=== PATIENT | male | born 1960 | race Caucasian/White ===

== ENCOUNTER → 2017-10-22 09:09 | Outpatient (CLI) | payer BC, SELFPAY ==
[2017-10-22 12:09] LABS: PSA,Total - Annual Screen 0.39 ng/mL (0.00-4.00)
[2017-10-27 12:08] LABS: Testosterone, Free 7.74 ng/dL (5.00-21.00)
[2017-10-27 14:17] LABS: Testosterone, % Free 2.23 % (1.50-4.20); Testosterone, Total 347 ng/dL (264-916)
== END ==
PROVIDERS: Family Provider Family Medicine; PCP Family Medicine; Visit Provider Family Medicine
DX: N52.9 Male erectile dysfunction, unspecified (principal); Z12.5 Encounter for screening for malignant neoplasm of prostate
CPT/HCPCS: 36415; 84153; 84402; 84403; G0103

== ENCOUNTER → 2018-03-08 08:02 | Outpatient (CLI) | payer OTHER, SELFPAY ==
--- NOTE | 2018-03-08 08:07 | US_ITS ---
PROCEDURES: ULTRASOUND AORTA REASON FOR EXAM: Male, 57 years old. Abdominal bruit. TECHNIQUE: Ultrasound evaluation of the aorta was performed with real-time and static springer-scale imaging. COMPARISON: None. FINDINGS: The aorta is somewhat tortuous and elongated. Atherosclerotic calcifications present in the wall of the aorta and proximal iliac vessels. Arterial flow is multiphasic and normal in the aorta and right common iliac artery. Aorta measures: Proximal 17 x 19 mm Mid 21 x 24 mm Distal 17 x 22 mm Right iliac artery measures: 8 x 7 mm Left iliac artery measures: 8 x 7 mm. Increased velocities up to 234 cm/s. US/Aorta IMPRESSION: No evidence of aneurysm. Increased velocity within a calcified atherosclerotic left common iliac artery up to 234 cm/s suggesting the presence of mild to moderate stenosis. Electronically Signed: Remington Andrews, at 16:09 EDT Tel , Service support ,
== END ==
LOC: US 08:03
PROVIDERS: Family Provider Family Medicine; PCP Family Medicine; Referring Provider Family Medicine; Visit Provider Family Medicine
DX: R09.89 Other specified symptoms and signs involving the circulatory and respiratory systems (principal)
CPT/HCPCS: 76775

== ENCOUNTER → 2018-10-19 06:11 | Outpatient (CLI) | payer OTHER, SELFPAY ==
[2018-10-04 10:24] VITALS: BMI 24.8
--- NOTE | 2018-10-19 16:55 | STRESSREP ---
Stress Test Report Date: 10-19-18 Procedure: Exercise tolerance test/imaging study Indications: Cardiac ectopy; PACs; PVCs, peripheral arterial occlusive disease Consent: Per the patient Procedure: The patient exercised on a Brett protocol for 6 minutes completing stage II achieving a peak heart rate of 137 bpm (84 % predicted maximal heart rate) with a peak blood pressure 170/82 mmHg and a peak MET capacity of 7 METs. The baseline ECG demonstrated sinus bradycardia; nonspecific T wave abnormality. The peak exercise ECG demonstrated somatic/motion artifact with pseudonormalization of the baseline nonspecific T wave changes with gradual resolution towards baseline in recovery. There were rare PACs during exercise and rare PVCs during recovery. The functional capacity was considered decreased. There was chest tightness during recovery with spontaneous resolution and recovery. The examination was discontinued secondary to leg discomfort. Impression: 1. Technically adequate (percent predicted maximal heart rate greater than 85%) exercise tolerance test 2. Peak exercise ECG menstruated somatic/motion artifact with pseudonormalization of the baseline nonspecific T wave changes with gradual resolution towards baseline in recovery 3. There were rare PACs during exercise and rare PVCs during recovery 4. Nuclear images pending Myocardial perfusion imaging study: Technique: The patient was injected with 11.9 mCi of technetium 99m Cardiolite and subsequently rest SPECT Cardiolite nuclear imaging was obtained in the horizontal long, vertical long, and short axis views. The patient exercised on a Brett protocol for 6 minutes completing stage II achieving a peak heart rate of 137 bpm (84 % predicted maximal heart rate) with a peak blood pressure 170/82 mmHg and a peak MET capacity of 7 METs. The patient was injected with 33.4 mCi of technetium 99m Cardiolite and subsequently stress SPECT Cardiolite nuclear imaging was obtained in the horizontal long, vertical long, and short axis views. A gated Cardiolite study at peak stress was obtained. Interpretation: Rest and stress SPECT Cardiolite nuclear imaging status post realignment, normalization, and attenuation correction, demonstrates extracardiac/gastrointestinal tracer uptake near the inferior segments at rest which appears to be less prominent and/or absent following stress. At rest there is notation of subtle diminished tracer uptake in portions of the distal anterior/anterior apical segments which appears to improve/normalize following stress. Following stress there appears to be relative uniform tracer uptake and myocardial perfusion appearing within normal limits. There is end systolic thickening and brightening. The gated Cardiolite study demonstrates myocardial thickening and inward wall motion. The reported LVEF is 66 %. Impression: 1. Rest and stress SPECT Cardiolite nuclear imaging demonstrate myocardial perfusion changes appearing compatible shifting soft tissue attenuation/artifact being more prominent at rest as opposed to stress with no post stress myocardial perfusion changes consider diagnostic for associated stress-induced myocardial ischemia or previous myocardial injury/infarction. 2. The gated Cardiolite study reports an LVEF of 66 %. This note was generated with WriteReader Ap[employer]ation software. It may contain incorrect words, spelling, and punctuation that were not noted in checking the note before signing.
== END ==
LOC: CVS 06:13
PROVIDERS: Family Provider Family Medicine; PCP Family Medicine; Referring Provider Internal Medicine Cardiovascular Disease; Visit Provider Internal Medicine Cardiovascular Disease
DX: R07.89 Other chest pain (principal); I49.1 Atrial premature depolarization; I49.3 Ventricular premature depolarization; I73.9 Peripheral vascular disease, unspecified; R00.1 Bradycardia, unspecified
CPT/HCPCS: 78452; 93017; A9500; A4216

== ENCOUNTER → 2018-10-29 07:54 | Outpatient (CLI) | payer OTHER, SELFPAY ==
[2018-10-04 10:24] VITALS: BMI 24.8
--- NOTE | 2018-10-29 08:15 | RAD_ITS ---
STUDY: X-RAY CHEST REASON FOR EXAM: Male, 58 years old. Abnormal stress test. TECHNIQUE: PA and lateral views of the chest. COMPARISON: None. FINDINGS: The lungs are clear and expanded. There is no demonstrated pleural abnormality. Normal size heart. Normal mediastinum and jina. Normal visualized pulmonary arteries. Normal visualized aortic arch and descending thoracic aorta. There are diffuse degenerative changes of the visualized thoracic spine. Normal visualized ribs, clavicles, and shoulders. There is no demonstrated abnormality of the visualized soft tissue structures of the upper abdomen. RAD/Chest PA and Lateral IMPRESSION: No acute abnormality is seen. Electronically Signed: Art Evans, at 13:43 EDT , Service support ,
[2018-10-29 08:20] LABS: Hematocrit 46.3 % (40-54); Hemoglobin 15.7 g/dl (13.0-16.5); Mean Corp Hgb Conc 33.9 g/gl (32-36); Mean Corpuscular Hgb 31.1 pg (27.0-32.0); Mean Corpuscular Volume 91.7 fL (80-94); Mean Platelet Vol. 10.2 fl (6.2-12.0); Platelet Count 257 K/mm3 (150-450); RBC Distribution Width CV 13.3 % (11.6-14.6); RBC Distribution Width SD 44.1 fl (35.1-43.9); Red Blood Count 5.05 M/mm3 (4.6-6.2)
[2018-10-29 08:28] LABS: Scan Indicated on CBC? Y/N NO
[2018-10-29 08:32] LABS: International Normalized Ratio 1.1; Prothrombin Time (Protime)PT. 13.8 SECONDS (11.7-14.9)
[2018-10-29 08:33] LABS: Partial Thromboplast Time 35.5 Seconds (24.1-36.2)
[2018-10-29 08:45] LABS: Anion Gap 4 (5-15); BUN 14 mg/dL (7-18); BUN/Creat Ratio 11.4 RATIO (10-20); Calcium,Total 8.8 mg/dL (8.5-10.1); Chloride 105 mmol/L (98-107); Creatinine, Serum 1.23 mg/dL (0.70-1.30); EST Glomerular Filtration Rate 64 mL/min (>60); Est Glom Filt Rate - Afr Amer 78 mL/min (>60); Glucose 115 mg/dL (74-106); Potassium 4.5 mmol/L (3.5-5.1); Sodium Level 138 mmol/L (136-145); T4 Total, Thyroxin 8.4 ug/dL (4.5-12.1)
== END ==
LOC: LAB 07:56
PROVIDERS: Family Provider Family Medicine; PCP Family Medicine; Referring Provider Internal Medicine Cardiovascular Disease; Visit Provider Internal Medicine Cardiovascular Disease
DX: R07.9 Chest pain, unspecified (principal); R00.2 Palpitations; R94.39 Abnormal result of other cardiovascular function study
CPT/HCPCS: 36415; 71046; 80048; 84436; 85027; 85610; 85730

== ENCOUNTER 2018-11-02 08:15 | Day surgery (SDC) | payer OTHER, SELFPAY ==
[2018-10-04 10:24] VITALS: BMI 24.8
[2018-10-29 09:43] VITALS: BMI 24.8
[2018-11-02] VITALS (25 sets, daily range): BP systolic 100–182; BP diastolic 59–102; PULSE 56–72; RESP 13–21; TEMP 36.8–36.9; O2SAT 95–998; BMI 24.6
--- NOTE | 2018-11-02 10:44 | ECHOD_ITS ---
Reason For Study: CAD/ASHD Procedure This was a 2D Doppler, Color Flow transthoracic echocardiogram. Echo done with patient supine due to recent cath. The study was technically difficult. Exam performed portable in ICU/CCU. Left Ventricle Normal LV size. Left ventricular systolic function is normal. The estimated ejection fraction is 60 %. Transmitral doppler flow suggestive of impaired relaxation of left ventricle. No regional wall motion abnormalities noted. Right Ventricle Normal RV size. Normal systolic function. Atria Normal left atrium. Normal right atrium. No doppler evidence for ASD. Mitral Valve There is no mitral annular calcification. Normal mitral valve. Trivial mitral valve insufficiency. Tricuspid Valve Normal tricuspid valve. Trivial tricuspid valve insufficiency. Unable to estimate RV systolic pressure/pulmonary artery pressure due to technically difficult study. Aortic Valve Trisinus/trileaflet aortic valve. Mild focal aortic valve calcification. Pulmonic Valve The pulmonic valve is not well visualized. Trivial pulmonic valve insufficiency. Great Vessels Normal sized aortic root. Pericardium/Pleural No pericardial effusion. MMode/2D Measurements & Calculations LVIDd: 4.4 cm IVSd: 0.89 cm Ao root diam: 3.5 cm LVIDs: 2.8 cm LVPWd: 0.89 cm LA dimension: 3.6 cm FS: 36.3 % LAV(MOD-bp): 39.4 ml LA A4 area: 13.6 cm2 RA A4 area: 10.9 cm2 LAV(MOD-bp) Indexed: 19.6 ml/m2 LAV(MOD-sp2): 38.5 ml LAV(MOD-sp4): 32.3 ml Time Measurements MV dec time: 0.28 sec Doppler Measurements & Calculations MV E max jose raul: 66.6 cm/sec Lat Peak E' Jose Raul: 12.3 cm/sec Med Peak E' Jose Raul: 10.1 cm/sec MV A max jose raul: 96.2 cm/sec E/E' lat: 5.4 E/E' med: 6.6 MV E/A: 0.69 MV V2 max: 98.2 cm/sec MV P1/2t max jose raul: 82.8 cm/sec Ao V2 max: 128.1 cm/sec MV max P.9 mmHg MV P1/2t: 92.7 msec Ao max P.6 mmHg MV V2 mean: 49.8 cm/sec MV dec slope: 261.8 cm/sec2 MV mean P.2 mmHg MVA(P1/2t): 2.4 cm2 MV V2 VTI: 28.0 cm LV V1 max: 98.0 cm/sec PA V2 max: 109.8 cm/sec LV V1 max P.8 mmHg Interpretation Summary The study was technically difficult. Left ventricular systolic function is normal. The estimated ejection fraction is 60 %. Trivial mitral valve insufficiency. Trivial tricuspid valve insufficiency. Mild focal aortic valve calcification. Trivial pulmonic valve insufficiency. Unable to estimate RV systolic pressure/pulmonary artery pressure due to technically difficult study. Transmitral doppler flow suggestive of impaired relaxation of left ventricle Ordering Physician: Rocky Cee Referring Physician: Rocky Cee Performed By: Sahil Ahn RCS
--- NOTE | 2018-11-02 11:30 | EKG12_ITS ---
Test Reason : POST PCI Blood Pressure : / mmHG Vent. Rate : 055 BPM Atrial Rate : 055 BPM P-R Int : 156 ms QRS Dur : 084 ms QT Int : 450 ms P-R-T Axes : 037 -01 004 degrees QTc Int : 430 ms Sinus bradycardia Otherwise normal ECG No previous ECGs available Confirmed by ORQUIDEA JOHNSTON, DIMITRI ([id number]), food editor YELENA JACINTO ([id number]) on 11/08/2018 2:48:20 PM Referred By: Rocky Cee Confirmed By:DIMITRI HEARD MD
--- NOTE | 2018-11-02 11:44 | CL.D_ITS ---
Patient Name: ISABELLE RESENDEZ Study Date: 11/02/2018 Performing: Rocky Cee MD Ht: 71 inches 180 cm : 1960 Wt: 178.8 lbs 81 kg Age: 58 Gender: male BSA: 2.01 PROCEDURE(S) PERFORMED [id number] W OR WO PTCA, SINGLE CORONARY ARTERY [id number], EACH ADD'L CORONARY ART, SAME MAJOR CLINICAL PROFILE AND INDICATIONS Indications: Suspected CAD Heart Failure: None Stress/Imaging Date: 10/19/2018 Angina Classification Anginal Classification w/in 2 Weeks: CCS II CAD Presentations: Other: Palpitations CONCLUSIONS [place] Multivessel CAD (especially LCX - Distal) RECOMMENDATIONS Risk factor modification Medical therapy Referred for immediate PCI DESCRIPTION OF PROCEDURE The patient arrived to the procedure lab. The risks and benefits of the procedure as well as a full d escription of our services here and current unavailability of surgical backup were fully explained to the patient and/or their significant other prior to the catheterization. The Timeout was completed, verifying the correct patient and procedure. The patient's procedural site was prepped and draped in the usual fashion. Local anesthetic was given subcutaneously to right radial region with Lidocaine 2% . Using a modified Seldinger technique, arterial access was obtained via the right radial artery, a 6 Fr sheath was inserted. Right Coronary Artery selective angiography was then performed in multiple v iews using a 5 Fr. 4.0 Riesel catheter. Left Coronary Artery selective angiography was performed in mu ltiple views using a 5 Fr. 4.0 Riesel catheter.The arterial sheath was pulled and a TR Band was applie d for hemostasis 12 cc's of air in band CORONARY ANGIOGRAPHY DOMINANCE: Right Dominant LEFT HEART ASSESSMENT Left Ventricular Ejection Fraction: Not assessed LEFT MAIN: Angiographically normal LEFT ANTERIOR DESCENDING ARTERY: Mild luminal irregularities PROX LAD: diffuse: 25 % Stenosis MID LAD: 10 - 25 % Stenosis CIRCUMFLEX ARTERY: Mild luminal irregularities MID CIRC: diffuse: 25 % Stenosis DISTAL CIRC: 85 % Stenosis RIGHT CORONARY ARTERY: Mild luminal irregularities MID RCA: eccentric: 25 % Stenosis COMPLICATIONS No Complications PROCEDURE MEDICATIONS Fentanyl 50 mcg IV Versed 1 mg IV Versed 1 mg IV Fentanyl 50 mcg IV Fentanyl 50 mcg IV Oxygen: 2 L/min via nasal cannula Heparin given IA 11/02/2018 09:59:10 Heparin 6000 unit(s) IV 11/02/2018 10:30:37 Verapamil 2.5mg, Ntg 100mcgs, 2000 units of Heparin given IA 11/02/2018 09:59:10 SUMMARY OF HEMODYNAMIC DATA Time AIR REST ECG 08:39:07 AO 114/66 (85) SA 10:01:41 LV 153/5, 17 10:35:50 LV 141/3, 15 10:35:57 LVp 147/7, 25 10:36:06 AOp 140/12 (55) 10:36:11 Signed By Rocky Cee MD On 11/02/2018 11:43:15 Rocky Cee MD
[2018-11-02] MEDS: hydrALAZINE 20 MG/ML Vial 5 MG IV (13:07)
--- NOTE | 2018-11-02 13:10 | CRPHASE1 ---
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 Refer Phase II Cardiac Rehab:: Yes Sessions:: 36 sessions - 3 days/wk, 12 weeks Risk Factors/Lifestyle Smoking Status: Current every day smoker Hx Hypertension: No Hx Diabetes Mellitus Type 1: No Hx Diabetes Mellitus Type 2: No Hx Metabolic Disorders: No Hx Dyslipidemia: Yes Hx Obesity: No Height: 5 ft 11 in - BMI 24.8 Stress: Home/Family Risk Factor for Sedentary Lifestyle: Moderate Risk Family History: Family History (Last Reviewed 10/04/18 @ 10:26 by Adeline Gutierrez) Father Hypertension Myocardial infarction CAD (coronary artery disease) Brother CAD (coronary artery disease) Issues Affecting Care:: None Knowledge of Condition:: Yes Learning Preferences: Verbal, Written Medical/Surgical History MT:: No CAD:: No Cardiomyopathy:: No Asthma:: Yes Diabetes:: No Hypertension:: No Dyslipidemia:: Yes Arrhythmias:: Yes - PALPITATIONS GERD:: Yes Discharge/Home/Social Eval Discharge Disposition: Home Cardiac Rehabilitation Info Cardiac Rehabilitation Program Information: Cardiac Rehabilitation is important for patients like you who are recovering from a heart problem. Cardiac rehabilitation programs are recognized as integral to the continued care of the patient with coronary heart disease. The cardiac rehabilitation program is designed to optimize a patient's physical, psychological, and social functioning. Health career development coordinator work in cardiac rehabilitation programs and assist you with getting the treatments you need to get stronger and healthier - like exercise, healthy eating habits, and medications. Cardiac rehabilitation has been show to help people with heart problems live longer and have better life enjoyment than people who do not go to cardiac rehabilitation. Please contact the Cardiac Rehabilitation Program at [facility] at in two weeks if you have not heard from them.
--- NOTE | 2018-11-02 13:14 | CRPHASE1_ITS ---
Patient Communication PHII Cardiac Rehab Discussed with Patient:: Yes Guide to Cardiac Rehab Given to Patient:: Yes Cardiac Rehab Facility Choice List Given to Patient:: Yes - PT TO CHOOSE CR [facility]AR [facility] Program Other:: Communication Given to CR, With permission faxed order and referral information Medical Services Assistant:: Fransisco Alonso - . Refer Phase II Cardiac Rehab:: Yes Sessions:: 36 sessions - 3 days/wk, 12 weeks Risk Factors/Lifestyle Smoking Status: Current every day smoker Hx Hypertension: No Hx Diabetes Mellitus Type 1: No Hx Diabetes Mellitus Type 2: No Hx Metabolic Disorders: No Hx Dyslipidemia: Yes Hx Obesity: No Height: 5 ft 11 in - BMI 24.8 Stress: Home/Family Risk Factor for Sedentary Lifestyle: Moderate Risk Family History: Family History (Last Reviewed 10/04/18 @ 10:26 by Adeline Gutierrez) Father Hypertension Myocardial infarction CAD (coronary artery disease) Brother CAD (coronary artery disease) Issues Affecting Care:: None Knowledge of Condition:: Yes Learning Preferences: Verbal, Written Medical/Surgical History IN:: No CAD:: No Cardiomyopathy:: No Asthma:: Yes Diabetes:: No Hypertension:: No Dyslipidemia:: Yes Arrhythmias:: Yes - PALPITATIONS GERD:: Yes Discharge/Home/Social Eval Discharge Disposition: Home Cardiac Rehabilitation Info Cardiac Rehabilitation Program Information: Cardiac Rehabilitation is important for patients like you who are recovering from a heart problem. Cardiac rehabilitation programs are recognized as integral to the continued care of the patient with coronary heart disease. The cardiac rehabilitation program is designed to optimize a patient's physical, psychological, and social functioning. Health customer care assistant work in cardiac rehabilitation programs and assist you with getting the treatments you need to get stronger and healthier - like exercise, healthy eating habits, and medications. Cardiac rehabilitation has been show to help people with heart problems live longer and have better life enjoyment than people who do not go to cardiac rehabilitation. Please contact the Cardiac Rehabilitation Program at [facility] at in two weeks if you have not heard from them.
--- NOTE | 2018-11-02 13:16 | CRPH1.INST_ITS ---
General Education CAD and cardiac anatomy and function:: Patient communicates acknowledgment, Family communicates acknowledgment Explanation of diagnoses and procedures:: Patient communicates acknowledgment, Family communicates acknowledgment Sign/Symptoms of TX:: Patient communicates acknowledgment, Family communicates acknowledgment Antiplatelet therapy: Patient communicates acknowledgment, Family communicates acknowledgment Proper use of NTG-SL: Not instructed Emergency procedures and activation of EMS: Patient communicates acknowledgment, Family communicates acknowledgment Compliance of all prescribed medications: Patient communicates acknowledgment, Family communicates acknowledgment - FAMILY AT BEDSIDE Smoking Patient Nicotine/Smoking Risk Factors Are:: Cigarettes Recommendations Include:: Smoking cessation strategies/Smoking packet, Second- hand smoke recommendation, Participation in a smoking cessation program Nicotine/Smoking Response Code:: Patient communicates acknowledgment, Family communicates acknowledgment Dyslipidemia Patient Dyslipidemia Risk Factors Are:: Total Cholesterol, Triglycerides, HDL, LDL Recommendations Include:: Lipid profile provided, Reviewed NCEP/ATP guidelines, Therapeutic Lifestyle Change dietary guidelines Dyslipidemia Response Code:: Patient communicates acknowledgment, Family communicates acknowledgment Overweight/Obesity Patient Overweight/Obesity Risk Factors Are:: BMI Normal [18-25 & < 65 years old] Hypertension Patient Hypertension Risk Factors Are:: No documented hx of HTN Heart Disease Heart Disease Response Code:: Patient communicates acknowledgment, Family communicates acknowledgment Diabetes Patient Diabetes Risk Factors Are:: No documented hx of diabetes Metabolic Syndrome Recommendations Include:: Does not meet criteria Sedentary Patient Sedentary Risk Factors Are:: Lack of regular exercise Recommendations Include:: Aerobic exercise 5-7 times/week for 20-30 minutes continuously, Benefits of regular exercise, Discussed home walking program, Monitored Outpatient Cardiac Rehab Sedentary Response Code:: Patient communicates acknowledgment, Family c ommunicates acknowledgment Stress Recommendations Include:: Identification of stressors, and assessment of coping skills, Stress management techniques Stress Response Code:: Patient communicates acknowledgment, Family communicates acknowledgment
--- NOTE | 2018-11-02 16:14 | CL.I_ITS ---
Patient Name: ISABELLE RESENDEZ Study Date: 11/02/2018 Performing: Ritchie Alonso MD Ht: 71 inches 180 cm : 1960 Wt: 178.8 lbs 81 kg Age: 58 Gender: male BSA: 2.01 PROCEDURE(S) PERFORMED [id number] W OR WO PTCA, SINGLE CORONARY ARTERY [id number], EACH ADD'L CORONARY ART, SAME MAJOR CLINICAL PROFILE AND CO-MORBIDITIES Indications: Suspected CAD Heart Failure: None Stress/Imaging Date: 10/19/2018 Angina Classification Anginal Classification w/in 2 Weeks: CCS II CAD Presentations: Other: Palpitations CONCLUSIONS Successful PCI of dLCx/OM1 bifurcation with AMANDA to dLCX and PTCA alone of OM1 RECOMMENDATIONS Follow up with primary 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 The risks and benefits of the procedure as well as a full d escription of our services here and current unavailability of surgical backup were fully explained to the patient and/or their significant other prior to the catheterization. The Timeout was completed, verifying the correct patient and procedure. The patient's procedural site was prepped and draped in the usual fashion. Local anesthetic was given subcutaneously to right radial region with Lidocaine 2% Using a modified Seldinger technique,arterial access was obtained via the right radial artery, a 6Fr sheath was inserted. Right Coronary Artery selective angiography was then performed in multiple view s using a 5 Fr. 4.0 [place] catheter. Left Coronary Artery selective angiography was performed in multi ple views using a 5 Fr. 4.0 [place] catheter.The images were reviewed and options discussed. A decision was then made to proceed with an Intervention, IVUS or other adjunct procedure. xb 3 guide Guide catheter was inserted and engaged into the LCA. bmw Guide wire was advanced to t he Circumflex. synergy 2.25 x 8 Drug Eluting stent was advanced across the lesion in the circumflex, distal. Angiogram performed post stent deployment. emerge 1.5 x 8 Balloon catheter was advanced acros s lesion in the first obtuse marginal, ostial. PTCA balloon inflated at 12 atms for 16 secs. emerge 2 .5 x 12 Balloon catheter was advanced across lesion in the first obtuse marginal, ostial. Angiogram p erformed pre balloon dilatation. PTCA balloon inflated at 6 atms for 11 secs. PTCA balloon inflated a t 6 atms for 7 secs. Angiogram performed post balloon dilatation. The arterial sheath was pulled an d a TR Band was applied for hemostasis 12 cc's of air in band INTERVENTION INFORMATION LESION SITE: Circumflex (Distal) Lesion Complexity: High/C, chronic total occlusion: No, lesion at bifurcation: Yes, thrombus present: No, lesion length: 5 mm, culprit lesion: Yes, Previously treated lesion: No Pre Stenosis: 90 % Pre intervention TAZ flow: 3 PROCEDURE: Drug Eluting Stent Post Stenosis: 0 % Post intervention TAZ flow: 3 Lesion Devices: FDTEK Synergy MR AMANDA 2.25x08 LESION SITE: 1st OM (Ostial) Lesion Complexity: High/C, chronic total occlusion: No, lesion at bifurcation: Yes, thrombus present: No, lesion length: 5 mm, In-stent restenosis: No, Previously treated lesion: No Pre Stenosis: 95 % Pre intervention TAZ flow: 3 PROCEDURE: Balloon Angioplasty Post Stenosis: 60 % Post intervention TAZ flow: 3 Lesion Devices: Tor Sci EMERGE MR 1.50x08 BALLOON Tor Sci EMERGE MR 2.50x12 BALLOON COMPLICATIONS No Complications PROCEDURE MEDICATIONS Fentanyl 50 mcg IV Versed 1 mg IV Versed 1 mg IV Fentanyl 50 mcg IV Fentanyl 50 mcg IV Oxygen: 2 L/min via nasal cannula Heparin given IA 11/02/2018 09:59:10 Heparin 6000 unit(s) IV 11/02/2018 10:30:37 Verapamil 2.5mg, Ntg 100mcgs, 2000 units of Heparin given IA 11/02/2018 09:59:10 SUMMARY OF HEMODYNAMIC DATA Time AIR REST ECG 08:39:07 AO 114/66 (85) SA 10:01:41 LV 153/5, 17 10:35:50 LV 141/3, 15 10:35:57 LVp 147/7, 25 10:36:06 AOp 140/12 (55) 10:36:11 Signed By Ritchie Alonso MD On 11/02/2018 16:13:47 Ritchie Alonso MD
[2018-11-02] MEDS: Metoprolol(XL)Succ 25 MG Tablet PO (19:41)
[2018-11-02] MEDS: Pantoprazole Sodium 20 MG Tablet PO (19:41)
[2018-11-03] VITALS (12 sets, daily range): BP systolic 108–147; BP diastolic 42–91; PULSE 55–73; RESP 15–23; TEMP 36.1–36.9; O2SAT 96–98
[2018-11-03 08:06] LABS: Hematocrit 45.1 % (40-54); Hemoglobin 15.1 g/dl (13.0-16.5)
[2018-11-03 08:20] LABS: Anion Gap 7 (5-15); BUN 14 mg/dL (7-18); BUN/Creat Ratio 13.2 RATIO (10-20); Calcium,Total 8.5 mg/dL (8.5-10.1); Chloride 109 mmol/L (98-107); Creatinine, Serum 1.06 mg/dL (0.70-1.30); EST Glomerular Filtration Rate 77 mL/min (>60); Est Glom Filt Rate - Afr Amer 93 mL/min (>60); Estimated Creatinine Clearance 81.89 ml/min; Glucose 101 mg/dL (74-106); Potassium 4.3 mmol/L (3.5-5.1); Sodium Level 142 mmol/L (136-145)
[2018-11-03] MEDS: Metoprolol(XL)Succ 25 MG Tablet PO (08:47)
[2018-11-03] MEDS: Pantoprazole Sodium 20 MG Tablet PO (08:47)
[2018-11-03] MEDS: Aspirin E.C. 81 MG Tablet PO (08:47)
[2018-11-03] MEDS: Clopidogrel Bisulfate 75 MG Tablet PO (08:47)
--- NOTE | 2018-11-03 08:57 | PCM.DC.CCA ---
Discharge Diet: Low fat/ Low Cholesterol Return to work on:: 11/08/18 Lifting Restrictions: 10 pounds and also avoid any pushing or pulling for 3 days after your test. Call your doctor if your incision/area has: Continuous Slow Oozing, Sudden Increased Bleeding, Increased Pain/ Swelling, Increased Redness, Foul Smelling Discharge, Swelling at the incision site Call your doctor if you observe: Fever of 101 or Higher, Shortness of breath, Chest pain Remove Dressing in (days):: 1 Additional Dressing/Incision Instructions:: Keep the dressing (bandage) on until the next morning. You may then shower, but do not take a tub bath for 5 days after your test. It is normal to have some tenderness and discomfort at the puncture site. Sometimes bruising also occurs. However, if pain, numbness, or coldness occurs below the puncture site (in your leg, toes, arms or fingers) call your doctor at once. You may have a small, marble sized knot at the puncture site. This is normal. Do not rub it. It will go away in 4-6 weeks. Bleeding can occur from the area where the puncture was done. Blood may spurt or drip from the site. If blood spurts, apply pressure right away to stop bleeding and call 911. Although rare, bleeding into the tissue (hematoma) can also occur. If this happens, a large, firm area goose egg under the skin will appear. If any of these occur, lie down as flat as you can and have someone apply firm pressure to the cath site with a gauze pad or a clean washcloth for 10-15 minutes. Call 911 or go to the Emergency Department. Additional Instructions: You will need to stay on your plavix for at least one year prior to holding it for any reason You were started on a cholesterol lowering medication, You will need to have your labs checked in 6 weeks after starting this medication At your next OV we will discuss cardiac rehab. Allergies/Adverse Reactions: Allergies No Known Allergies Allergy (Unverified 10/04/18 10:24) Medications to take at Discharge acetaminophen 500 mg tablet 500 mg PO DAILY tab 06/11/17 esomeprazole magnesium 20 mg tablet,delayed release 20 mg PO QDAY 06/11/17 aspirin 81 mg tablet,delayed release 81 mg PO DAILY 10/04/18 metoprolol succinate ER 25 mg tablet,extended release 24 hr 25 mg PO BID #180 tab 10/04/18 RX: Aspirin E.C. [Ecotrin] 81 mg PO DAILYCM #30 tablet 11/03/18 RX: Atorvastatin Calcium [Lipitor] 40 mg PO QHS #30 tablet 11/03/18 RX: Clopidogrel Bisulfate [Clopidogrel] 75 mg PO DAILY #30 tab 11/03/18 The following prescriptions were given: RX: Aspirin E.C. [Ecotrin] 81 mg PO DAILYCM #30 tablet RX: Atorvastatin Calcium [Lipitor] 40 mg PO QHS #30 tablet RX: Clopidogrel Bisulfate [Clopidogrel] 75 mg PO DAILY #30 tab Orders to be completed after discharge: Phase II, Outpatient Cardiac Rehab Location: None Selected Primary Care Physician: Haroldo Meeks DO [Primary Care Provider] - Please follow up with your Primary Care Physician in: 2-4 weeks Test Results: Test results from this visit will be discussed in further detail at your follow-up appointment, if applicable. Please Follow Up With: Nirmal Hays NP-C When: 11/22 at 1130 Cardiac Rehabilitation Info Cardiac Rehabilitation Program Information: Cardiac Rehabilitation is important for patients like you who are recovering from a heart problem. Cardiac rehabilitation programs are recognized as integral to the continued care of the patient with coronary heart disease. The cardiac rehabilitation program is designed to optimize a patient's physical, psychological, and social functioning. Health intensive care ambulance paramedic work in cardiac rehabilitation programs and assist you with getting the treatments you need to get stronger and healthier - like exercise, healthy eating habits, and medications. Cardiac rehabilitation has been show to help people with heart problems live longer and have better life enjoyment than people who do not go to cardiac rehabilitation. Please contact the Cardiac Rehabilitation Program at [facility] at in two weeks if you have not heard from them.
--- NOTE | 2018-11-03 09:02 | DCINST_ITS ---
Discharge Diet: Low fat/ Low Cholesterol Return to work on:: 11/08/18 Lifting Restrictions: 10 pounds and also avoid any pushing or pulling for 3 days after your test. Call your doctor if your incision/area has: Continuous Slow Oozing, Sudden Increased Bleeding, Increased Pain/ Swelling, Increased Redness, Foul Smelling Discharge, Swelling at the incision site Call your doctor if you observe: Fever of 101 or Higher, Shortness of breath, Chest pain Remove Dressing in (days):: 1 Additional Dressing/Incision Instructions:: Keep the dressing (bandage) on until the next morning. You may then shower, but do not take a tub bath for 5 days after your test. It is normal to have some tenderness and discomfort at the puncture site. Sometimes bruising also occurs. However, if pain, numbness, or coldness occurs below the puncture site (in your leg, toes, arms or fingers) call your doctor at once. You may have a small, marble sized knot at the puncture site. This is normal. Do not rub it. It will go away in 4-6 weeks. Bleeding can occur from the area where the puncture was done. Blood may spurt or drip from the site. If blood spurts, apply pressure right away to stop bleeding and call 911. Although rare, bleeding into the tissue (hematoma) can also occur. If this happens, a large, firm area goose egg under the skin will appear. If any of these occur, lie down as flat as you can and have someone apply firm pressure to the cath site with a gauze pad or a clean washcloth for 10-15 minutes. Call 911 or go to the Emergency Department. Additional Instructions: You will need to stay on your plavix for at least one year prior to holding it for any reason You were started on a cholesterol lowering medication, You will need to have your labs checked in 6 weeks after starting this medication At your next OV we will discuss cardiac rehab. Allergies/Adverse Reactions: Allergies No Known Allergies Allergy (Unverified 10/04/18 10:24) Medications to take at Discharge acetaminophen 500 mg tablet 500 mg PO DAILY tab 06/11/17 esomeprazole magnesium 20 mg tablet,delayed release 20 mg PO QDAY 06/11/17 aspirin 81 mg tablet,delayed release 81 mg PO DAILY 10/04/18 metoprolol succinate ER 25 mg tablet,extended release 24 hr 25 mg PO BID #180 tab 10/04/18 RX: Aspirin E.C. [Ecotrin] 81 mg PO DAILYCM #30 tablet 11/03/18 RX: Atorvastatin Calcium [Lipitor] 40 mg PO QHS #30 tablet 11/03/18 RX: Clopidogrel Bisulfate [Clopidogrel] 75 mg PO DAILY #30 tab 11/03/18 The following prescriptions were given: RX: Aspirin E.C. [Ecotrin] 81 mg PO DAILYCM #30 tablet RX: Atorvastatin Calcium [Lipitor] 40 mg PO QHS #30 tablet RX: Clopidogrel Bisulfate [Clopidogrel] 75 mg PO DAILY #30 tab Orders to be completed after discharge: Phase II, Outpatient Cardiac Rehab Location: None Selected Primary Care Physician: Haroldo Meeks DO [Primary Care Provider] - Please follow up with your Primary Care Physician in: 2-4 weeks Test Results: Test results from this visit will be discussed in further detail at your follow- up appointment, if applicable. Please Follow Up With: Nirmal Hays NP-C When: 11/22 at 1130 Cardiac Rehabilitation Info Cardiac Rehabilitation Program Information: Cardiac Rehabilitation is important for patients like you who are recovering from a heart problem. Cardiac rehabilitation programs are recognized as integral to the continued care of the patient with coronary heart disease. The cardiac rehabilitation program is designed to optimize a patient's physical, psychological, and social functioning. Health dog day care attendant work in cardiac rehabilitation programs and assist you with getting the treatments you need to get stronger and healthier - like exercise, healthy eating habits, and medications. Cardiac rehabilitation has been show to help people with heart problems live longer and have better life enjoyment than people who do not go to cardiac rehabilitation. Please contact the Cardiac Rehabilitation Program at [facility] at in two weeks if you have not heard from them.
--- NOTE | 2018-11-03 09:57 | PCM.DC.SUM ---
Discharge Date and Diagnosis Date of Admission: 11/02/18 Date of Discharge: 11/03/18 - Primary Discharge Diagnosis CAD status post LCx PCI - Secondary Discharge Diagnosis Chronic Problems (Last Updated 11/03/18 @ 08:41 by Adeline Gutierrez) Atherosclerotic heart disease of [place] coronary artery without angina pectoris (Chronic) S/P coronary artery stent placement (Chronic ~11/02/18) PCI/AMANDA of the LCX and PTCA of OM1 11/02/18 Hyperlipidemia (Chronic) Hospital Course and Treatment Procedures: Cardiac catheterization, - - Cardiac intervention Summary of Care Provided: The patient is a 58 year old with cardiovascular risk factors and a history of underlying cardiac ectopy presented for further evaluation of an abnormal exercise tolerance test/imaging study with diagnostic cardiac catheterization. Diagnostic cardiac catheterization revealed LCx distal disease. The patient subsequently underwent LCx distal PCI/AMANDA. He was monitored in the ICU overnight. He remains symptomatically and hemodynamically stable. On this day it was felt the patient could be released home for continued outpatient cardiovascular follow-up. [] Subjective: This is a 58-year-old white male who appears to be resting comfortably at the moment in no acute distress. - Physical Exam General: Alert, Oriented x3, Cooperative, No apparent distress HEENT: Atraumatic, PERRLA, EOMI, Normocephalic Oral: Moist Mucosa Neck: Supple, No JVD Lungs: Clear to auscultation Cardiovascular: Regular rate, Regular Rhythm Abdomen: Bowel Sounds Present, Soft, Non Tender Extremities: No clubbing, No cyanosis, No edema Neurological: Neuro grossly intact Psych/Mental Status: Normal Affect Comment: Right radial artery: Pulse 2+/4+: No obvious bruits: No obvious hematoma Vital Signs Temp Pulse Resp BP Pulse Ox 96.9 F L 73 23 H 146/91 H 97 11/03/18 07:30 11/03/18 09:00 11/03/18 09:00 11/03/18 09:00 11/03/18 09:00 Oxygen Delivery Method Room Air Weight: 180 lb 12.465 oz Body Mass Index (BMI) 24.6 Intake and Output for Last 24 Hours 11/01/18 11/02/18 11/03/18 23:59 23:59 23:59 Intake Total 840 / 840 240 / 240 Balance 840 / 840 240 / 240 Laboratory Tests Past 24 Hrs 11/03/18 11/03/18 08:00 08:00 Hgb 15.1 Hct 45.1 Sodium 142 Potassium 4.3 Chloride 109 H Carbon Dioxide 26.0 Anion Gap 7 BUN 14 Creatinine 1.06 Estim Creat Clear Calc 81.89 Est GFR (MDRD) Af Amer 93 Est GFR (MDRD) Non-Af 77 BUN/Creatinine Ratio 13.2 Glucose 101 Calcium 8.5 Discharge Diet: Low fat/ Low Cholesterol Return to work on:: 11/08/18 Call your doctor if your incision/area has: Continuous Slow Oozing, Sudden Increased Bleeding, Increased Pain/ Swelling, Increased Redness, Foul Smelling Discharge, Swelling at the incision site Call your doctor if you observe: Fever of 101 or Higher, Shortness of breath, Chest pain Remove Dressing in (days):: 1 Additional Dressing/Incision Instructions:: Keep the dressing (bandage) on until the next morning. You may then shower, but do not take a tub bath for 5 days after your test. It is normal to have some tenderness and discomfort at the puncture site. Sometimes bruising also occurs. However, if pain, numbness, or coldness occurs below the puncture site (in your leg, toes, arms or fingers) call your doctor at once. You may have a small, marble sized knot at the puncture site. This is normal. Do not rub it. It will go away in 4-6 weeks. Bleeding can occur from the area where the puncture was done. Blood may spurt or drip from the site. If blood spurts, apply pressure right away to stop bleeding and call 911. Although rare, bleeding into the tissue (hematoma) can also occur. If this happens, a large, firm area goose egg under the skin will appear. If any of these occur, lie down as flat as you can and have someone apply firm pressure to the cath site with a gauze pad or a clean washcloth for 10-15 minutes. Call 911 or go to the Emergency Department. Home Medications: Medications to take at Discharge acetaminophen 500 mg tablet 500 mg PO DAILY tab 06/11/17 esomeprazole magnesium 20 mg tablet,delayed release 20 mg PO QDAY 06/11/17 aspirin 81 mg tablet,delayed release 81 mg PO DAILY 10/04/18 metoprolol succinate ER 25 mg tablet,extended release 24 hr 25 mg PO BID #180 tab 10/04/18 Aspirin E.C. [Ecotrin] 81 mg PO DAILYCM #30 tablet 11/03/18 Atorvastatin Calcium [Lipitor] 40 mg PO QHS #30 tablet 11/03/18 Clopidogrel Bisulfate [Clopidogrel] 75 mg PO DAILY #30 tab 11/03/18 Following Prescrptions Were Given to Patient: Aspirin E.C. [Ecotrin] 81 mg PO DAILYCM #30 tablet Atorvastatin Calcium [Lipitor] 40 mg PO QHS #30 tablet Clopidogrel Bisulfate [Clopidogrel] 75 mg PO DAILY #30 tab Other Amb Orders: Phase II, Outpatient Cardiac Rehab Location: None Selected Primary Care Physician: Haroldo Meeks DO [Primary Care Provider] - Please follow up with your Primary Care Physician in: 2-4 weeks Please Follow Up With: Nirmal Hays AIRPLANE ELECTRICAL REPAIRER-C When: 11/22 at 1130 Additional Instructions: You will need to stay on your plavix for at least one year prior to holding it for any reason You were started on a cholesterol lowering medication, You will need to have your labs checked in 6 weeks after starting this medication At your next OV we will discuss cardiac rehab. Disposition: Home Minutes spent on discharge:: 45 Patient Condition:: Stable Medical Necessity - Tobacco Use Smoking Status: Current every day smoker Meaningful Use Info Meaningful Use Diagnoses (Choose all that apply): None applicable
--- NOTE | 2018-11-03 10:00 | EKG12_ITS ---
Test Reason : AM EKG Blood Pressure : / mmHG Vent. Rate : 058 BPM Atrial Rate : 058 BPM P-R Int : 154 ms QRS Dur : 082 ms QT Int : 432 ms P-R-T Axes : 044 004 -10 degrees QTc Int : 424 ms Sinus bradycardia Nonspecific T wave abnormality Abnormal ECG When compared with ECG of 02-NOV-2018 11:31, MANUAL COMPARISON REQUIRED, DATA IS UNCONFIRMED Confirmed by ORQUIDEA JOHNSTON, DIMITRI ([id number]), associate entertainment editor YELENA JACINTO ([id number]) on 11/08/2018 2:48:03 PM Referred By: Rocky Cee Confirmed By:DIMITRI HEARD MD
== END 2018-11-03 09:57 | disposition home or self-care (01) ==
LOC: CLSP 08:16 → ICU 11:15
PROVIDERS: Family Provider Family Medicine; PCP Family Medicine; Referring Provider Internal Medicine Cardiovascular Disease; Visit Provider Internal Medicine Cardiovascular Disease
DX: I25.10 Atherosclerotic heart disease of native coronary artery without angina pectoris (principal); I49.1 Atrial premature depolarization; I49.3 Ventricular premature depolarization; I73.9 Peripheral vascular disease, unspecified; E78.5 Hyperlipidemia, unspecified; J45.909 Unspecified asthma, uncomplicated; K21.9 Gastro-esophageal reflux disease without esophagitis; F17.210 Nicotine dependence, cigarettes, uncomplicated; Z79.82 Long term (current) use of aspirin; Z79.899 Other long term (current) drug therapy
CPT/HCPCS: 80048; 85014; 85018; 92921; 92928; 93005; 93306; 93454; 99152; 99153; J7040; Q9967; A4216; C1725; C1769; C1874; C1887; C1894; C9600

== ENCOUNTER → 2019-02-08 07:39 | Outpatient (CLI) | payer OTHER, SELFPAY ==
[2018-11-22 10:38] VITALS: BMI 24.8
[2019-02-08 09:02] LABS: AST(SGOT) 16 U/L (15-37); Alanine Aminotransfer ALT/SGPT 22 U/L (16-61); Albumin, Serum 3.5 g/dL (3.2-5.0); Alkaline Phosphatase 118 U/L (45-117); Bilirubin, Direct 0.06 mg/dL (0.00-0.30); Cholesterol 129 mg/dL (200); Globulin 3.7 g/dL (2.2-4.2); High Density Lipoprotein 27 mg/dL; Protein, Total 7.2 g/dL (6.4-8.2); Triglycerides 242 mg/dL; Very Low Density Lipoprotein 48 mg/dL (5-40)
== END ==
PROVIDERS: Family Provider Family Medicine; PCP Family Medicine; Referring Provider Nurse Practitioner Family; Visit Provider Nurse Practitioner Family
DX: I25.10 Atherosclerotic heart disease of native coronary artery without angina pectoris (principal); E78.5 Hyperlipidemia, unspecified; Z95.5 Presence of coronary angioplasty implant and graft
CPT/HCPCS: 36415; 80061; 80076

== ENCOUNTER → 2019-11-10 08:43 | Outpatient (CLI) | payer OTHER, SELFPAY ==
[2019-11-04 08:43] VITALS: BMI 25.2
== END ==
LOC: PSN 08:47
PROVIDERS: PCP Family Medicine; Referring Provider Internal Medicine Cardiovascular Disease; Visit Provider Internal Medicine Cardiovascular Disease
DX: R00.2 Palpitations (principal); I25.10 Atherosclerotic heart disease of native coronary artery without angina pectoris; I73.9 Peripheral vascular disease, unspecified; E78.5 Hyperlipidemia, unspecified; Z95.5 Presence of coronary angioplasty implant and graft
CPT/HCPCS: 93225; 93226

== ENCOUNTER → 2020-08-25 09:19 | Outpatient (CLI) | payer BC, SELFPAY ==
[2020-06-06 09:00] VITALS: BMI 24.5
--- NOTE | 2020-08-25 09:30 | US_ITS ---
STUDY: THYROID ULTRASOUND REASON FOR EXAM: Male, 59 years old. NODULE TECHNIQUE: Ultrasound evaluation of the thyroid was performed with real-time and static springer-scale imaging. COMPARISON: None. FINDINGS: RIGHT LOBE: The right lobe of the thyroid gland measures 4.4 x 2.2 x 2.2 cm. There is a homogeneous echotexture. Well-defined hypoechoic round nodule of the right thyroid lobe measures 3 mm (TR 4). No imaging follow-up needed. LEFT LOBE: The left lobe of the thyroid gland measures 4.5 x 1.9 x 1.7 cm. There is a homogeneous echotexture. There are no demonstrated solid, cystic or complex lesions. ISTHMUS: The isthmus measures 4 mm. The regional lymph nodes are normal. US/Thyroid IMPRESSION: 3 mm right thyroid lobe nodule. TI-RADS category: TR4. This nodule is moderately suspicious but no FNA or follow-up is necessary given the small size of this nodule. Electronically Signed: Sarath Katz MD ([place]) at 16:53 EDT , Service support ,
[2020-08-25 10:54] LABS: Absolute Lymphocyte Count 2.46 X10^3/uL (0.83-4.51); Absolute Neutrophil Count 9.4 X10^3/uL (2.0-7.7); Basophil# 0.07 X10^3/uL; Basophil% 0.5 % (0-1); Eosinophil# 0.29 X10^3/uL; Eosinophils% 2.2 % (0-5); Hematocrit 45.9 % (40-54); Hemoglobin 15.1 g/dL (13.0-16.5); Lymphocyte # 2.46 X10^3/ul (4.0); Lymphocyte % 18.5 % (19-41); Mean Corp Hgb Conc 32.9 g/dL (32-36); Mean Corpuscular Hgb 30.9 pg (27.0-32.0); Mean Corpuscular Volume 93.9 fL (80-94); Mean Platelet Vol. 10.4 fl (6.2-12.0); Monocyte# 0.97 X10^3/uL; Monocyte% 7.3 % (0-10); NRBC Flagged by Analyzer 0 % (0-5); Neutrophil # 9.42 X10^3/uL (2.7-7.7); Platelet Count 252 K/mm3 (150-450); RBC Distribution Width CV 12.5 % (11.6-14.6); RBC Distribution Width SD 43.4 fl (35.1-43.9); Red Blood Count 4.89 M/mm3 (4.6-6.2); White Blood Count 13.3 K/mm3 (4.4-11.0)
[2020-08-25 11:21] LABS: ALB/GLOB Ratio 1.1 RATIO (0.9-2.4); AST(SGOT) 20 U/L (15-37); Alanine Aminotransfer ALT/SGPT 39 U/L (16-61); Alkaline Phosphatase 113 U/L (45-117); Anion Gap 4 (5-15); BUN 18 mg/dL (7-18); BUN/Creat Ratio 16.4 RATIO (10-20); Calcium,Total 8.8 mg/dL (8.5-10.1); Chloride 107 mmol/L (98-107); Cholesterol 137 mg/dL (200); EST Glomerular Filtration Rate 73 mL/min (>60); Est Glom Filt Rate - Afr Amer 88 mL/min (>60); Globulin 3.6 g/dL (2.2-4.2); Glucose 92 mg/dL (74-106); High Density Lipoprotein 29 mg/dL; Potassium 4.7 mmol/L (3.5-5.1); Protein, Total 7.6 g/dL (6.4-8.2); Sodium Level 141 mmol/L (136-145); Triglycerides 179 mg/dL; Very Low Density Lipoprotein 36 mg/dL (5-40)
== END ==
LOC: US 09:21
PROVIDERS: PCP Family Medicine; Referring Provider Family Medicine; Visit Provider Family Medicine
DX: Z00.00 Encounter for general adult medical examination without abnormal findings (principal); E04.1 Nontoxic single thyroid nodule; Z12.5 Encounter for screening for malignant neoplasm of prostate
CPT/HCPCS: 36415; 76536; 80053; 80061; 84153; 85025; G0103

== ENCOUNTER → 2023-12-04 | Outpatient (CLI) | payer BC, SELFPAY ==
[2023-12-04 17:06] LABS: Absolute Lymphocyte Count 2.59 X10^3/uL (0.83-4.51); Absolute Neutrophil Count 5.3 X10^3/uL (2.0-7.7); Basophil# 0.04 X10^3/uL; Basophil% 0.4 % (0-1); Eosinophil# 0.21 X10^3/uL; Eosinophils% 2.3 % (0-5); Hematocrit 44.3 % (40-54); Hemoglobin 14.6 g/dL (13.0-16.5); Lymphocyte # 2.59 X10^3/ul (0.83-4.51); Lymphocyte % 28.9 % (19-41); Mean Corpuscular Hgb 30.5 pg (27.0-32.0); Mean Corpuscular Volume 92.7 fL (80-94); Mean Platelet Vol. 10.7 fl (6.2-12.0); Monocyte# 0.74 X10^3/uL; Monocyte% 8.2 % (0-10); NRBC Flagged by Analyzer 0 % (0-5); Neutrophil # 5.34 X10^3/uL (2.7-7.7); Neutrophil % 59.6 % (47-70); Platelet Count 237 K/mm3 (150-450); RBC Distribution Width CV 13.2 % (11.6-14.6); RBC Distribution Width SD 45.1 fl (35.1-43.9); Red Blood Count 4.78 M/mm3 (4.6-6.2)
[2023-12-04 17:22] LABS: AST(SGOT) 16 U/L (15-37); Alanine Aminotransfer ALT/SGPT 29 U/L (16-61); Albumin, Serum 3.9 g/dL (3.2-5.0); Alkaline Phosphatase 117 U/L (45-117); Anion Gap 6 (5-15); BUN 20 mg/dL (7-18); BUN/Creat Ratio 14.3 RATIO (10-20); Calcium,Total 8.9 mg/dL (8.5-10.1); Chloride 107 mmol/L (98-107); Cholesterol 128 mg/dL (200); EST Glomerular Filtration Rate 55 mL/min (>60); Est Glom Filt Rate - Afr Amer 66 mL/min (>60); Globulin 3.9 g/dL (2.2-4.2); Glucose 103 mg/dL (74-106); High Density Lipoprotein 29 mg/dL; PSA,Total - Annual Screen 0.45 ng/mL (0.00-4.00); Potassium 4.3 mmol/L (3.5-5.1); Protein, Total 7.8 g/dL (6.4-8.2); Sodium Level 138 mmol/L (136-145); Triglycerides 191 mg/dL; Very Low Density Lipoprotein 38 mg/dL (5-40)
[2023-12-04 17:50] LABS: Hemoglobin A1c 5.7 % (3.8-5.6)
== END | disposition home or self-care (01) ==
LOC: BFHLAB 14:23
PROVIDERS: PCP Family Medicine; Referring Provider Family Medicine; Visit Provider Family Medicine
DX: Z00.00 Encounter for general adult medical examination without abnormal findings (principal); Z12.5 Encounter for screening for malignant neoplasm of prostate
CPT/HCPCS: 36415; 80053; 80061; 83036; 84153; 85025; G0103

== ENCOUNTER → 2023-12-19 | Outpatient (CLI) | payer BC, SELFPAY ==
--- NOTE | 2023-12-19 10:12 | CT_ITS ---
STUDY: LOW DOSE CT LUNG CANCER SCREENING REASON FOR EXAM: Male, 63 years old. TOBACCO ABUSE. RADIATION DOSAGE (If Supplied By Facility): CTDIvol = ( 3.02 ) mGy, DLP = ( 112.49 ) mGycm TECHNIQUE: No contrast was administered. Low dose technique was utilized (average mAS-38 and kVp 120). 1.25 mm axial source images with a slice interval of 1.25-mm were reconstructed in lung windows. 2.5 mm axial source images with a slice interval of 2.5-mm were reconstructed in lung windows. 5.0 mm axial source images with a slice interval of 5.0-mm were reconstructed in soft tissue windows. COMPARISON: None. Emphysema: Mild bilateral apical scarring. Mild emphysema. No noncalcified nodule or mass. Endobronchial lesion: None Aorta: No thoracic aortic aneurysm. CORONARY ARTERIES: Coronary artery calcification is seen. Heart: No cardiomegaly. Pulmonary artery: Normal Mediastinal nodes: Normal Other chest and abdominal findings: None CT/Low Dose CT Lung Screening IMPRESSION: Lung-RADS category 1 - Continue annual screening with LDCT in 12 months. IMPORTANT NOTES FOR USE: ACR Lung-RADS Version 1.1 Assessment Categories Release Date: 2018 Category: Coded 0-4 bases on nodule(s) with highest degree of suspicion. Negative screen is defined as categories 1 and 2; a positive screen is defined as categories 3 and 4. Category 3 and 4A nodules that are unchanged on interval CT should be coded as category 2, and individuals returned to screening in 12 months. Category 4X: Category 3 or 4 nodules with additional imaging findings that increase the suspicion of lung cancer, such as spiculation, GGN that doubles in size in 1 year, enlarged lymph notes, etc. Category Modifiers: S (significant finding unrelated to lung cancer) Electronically Signed: Remington Park MD at 9:17 EDT ,
== END | disposition home or self-care (01) ==
PROVIDERS: PCP Family Medicine; Referring Provider Family Medicine; Visit Provider Family Medicine
DX: Z12.2 Encounter for screening for malignant neoplasm of respiratory organs (principal); Z72.0 Tobacco use
CPT/HCPCS: 71271